=== PATIENT | female | born 1945 | race African-American/Black ===

== ENCOUNTER 2017-03-11 10:29 | Day surgery (SDC) | payer OTHER ==
[2017-03-11] MEDS ORDERED: D5 LR 1000 ML 1,000 ML IV ONE (10:38)
[2017-03-11] MEDS ORDERED: DIPRIVAN VIAL 20 ML ONE (11:54)
[2017-03-11 12:46] VITALS: BP 138/79
== END 2017-03-11 12:33 | disposition home or self-care (01) ==
LOC: SURG1 10:29
PROVIDERS: ATTEND Internal Medicine Gastroenterology
PROC: 0DB68ZX Excision of Stomach, Via Natural or Artificial Opening Endoscopic, Diagnostic (ICD-10-PCS; principal; 2017-03-11 14:45)
PROC: 0DJ08ZZ Inspection of Upper Intestinal Tract, Via Natural or Artificial Opening Endoscopic (ICD-10-PCS; principal; 2017-03-11 14:45)
PROC: 0DB88ZX Excision of Small Intestine, Via Natural or Artificial Opening Endoscopic, Diagnostic (ICD-10-PCS; principal; 2017-03-11 14:45)
DX: D50.8 Other iron deficiency anemias (principal); R10.13 Epigastric pain; K21.9 Gastro-esophageal reflux disease without esophagitis; K25.9 Gastric ulcer, unspecified as acute or chronic, without hemorrhage or perforation; K29.60 Other gastritis without bleeding; K20.8 Other esophagitis; K44.9 Diaphragmatic hernia without obstruction or gangrene
CPT/HCPCS: 99100; A4217; J3490; J7120

== ENCOUNTER → 2017-08-09 | Outpatient (CLI) | payer MEDICARE ==
--- NOTE | 2017-08-09 16:56 | RAD ---
HISTORY: Left knee pain Study: Three views left knee Comparison: None Findings: There is no acute fracture or dislocation. There is moderate to severe tricompartmental DJD with a tr nabila effusion. No destructive osseous lesions are seen. IMPRESSION: Moderate to severe tricompartmental DJD. Reported By:
--- NOTE | 2017-08-09 16:57 | RAD ---
History: Knee pain Study: Right knee three views Findings: Three views the right knee demonstrates severe joint space narrowing and moderate marginal spurring affecting the medial joint compartment. There is narrowing of mild to moderate spurring affe cting the retropatellar joint. There is irregular calcification in the suprapatellar region having th e appearance of a synovial osteochondroma. No fracture, bony destructive process or joint effusion is identified. Impression: Moderate to advanced osteoarthrosis of the right knee. Reported By:
== END ==
LOC: RAD 16:16
PROVIDERS: ATTEND Family Medicine
DX: M17.0 Bilateral primary osteoarthritis of knee (principal)
CPT/HCPCS: 73560

== ENCOUNTER 2017-08-12 10:58 | Day surgery (SDC) | payer MEDICARE ==
[2017-08-12] MEDS ORDERED: D5 LR 1000 ML 1,000 ML IV ONE (11:14)
[2017-08-12] MEDS ORDERED: DIPRIVAN VIAL 20 ML ONE (12:50)
[2017-08-12 15:20] VITALS: BP 144/82
== END 2017-08-12 13:25 | disposition home or self-care (01) ==
LOC: SURG1 10:58
PROVIDERS: ATTEND Internal Medicine Gastroenterology
PROC: 0DJ08ZZ Inspection of Upper Intestinal Tract, Via Natural or Artificial Opening Endoscopic (ICD-10-PCS; principal; 2017-08-12 14:00)
PROC: 0DB68ZX Excision of Stomach, Via Natural or Artificial Opening Endoscopic, Diagnostic (ICD-10-PCS; principal; 2017-08-12 14:00)
DX: K25.9 Gastric ulcer, unspecified as acute or chronic, without hemorrhage or perforation (principal); K21.9 Gastro-esophageal reflux disease without esophagitis; D50.8 Other iron deficiency anemias; K29.60 Other gastritis without bleeding; K20.8 Other esophagitis
CPT/HCPCS: A4217; J3490; J7120